=== PATIENT | female | born 1990 | race American Indian/Alaskan Native ===

== ENCOUNTER 2017-06-14 10:15 | Inpatient (IN) | payer SELFPAY ==
[2017-06-14 12:14] LABS: Hematocrit 36.3 % (30.3-42.9); Hemoglobin 12.1 gm/dl (10.1-14.3); Mean Corpuscular HGB Conc 33 % (30-34); Mean Corpuscular Hemoglobin 29 pg (28-32); Mean Corpuscular Volume 86 fl (79-97); Platelet Count 212 K/mm3 (140-440); Red Blood Count 4.24 M/mm3 (3.65-5.03); Red Cell Distribution Width 14.4 % (13.2-15.2)
[2017-06-14 12:18] LABS: Alanine Aminotransferase 12 units/L (7-56); Albumin 4.4 g/dL (3.9-5); BUN/Creatinine Ratio 18; Blood Urea Nitrogen 11 mg/dL (7-17); Hemolysis Index 3; Lipase 29 units/L (13-60)
[2017-06-14 12:52] LABS: Basophils % (Manual) 0 % (0.0-1.8); Eosinophils % (Manual) 0 % (0.0-4.3); Giant Platelets Few; Platelet Estimate Cons; RBC Morphology Normal; Total Cells Counted 100
[2017-06-14 13:27] LABS: Bilirubin,Urine NEG (Negative); Blood,Urine NEG (Negative); Color,Urine Yellow (Yellow); Hyaline Casts,Urine 1 /LPF; Mucus,Urine FEW /HPF; Protein,Urine <15 mg/dL mg/dL (Negative); RBC,Urine < 1.0 /HPF (0.0-6.0); Urobilinogen,Urine < 2.0 mg/dL (<2.0)
[2017-06-14 13:31] LABS: HCG Qualitative,Urine Negative (Negative)
[2017-06-14] MEDS ORDERED: NACL 0.9% 1000 ML 1,000 ML IV ONE ×2 (14:12→16:45)
[2017-06-14] MEDS ORDERED: ZOFRAN IV ONE ×2 (14:12→16:45)
[2017-06-14] MEDS ORDERED: MORPHINE IV ONE (14:12)
--- NOTE | 2017-06-14 14:14 | Emergency Department Report ---
Blank Doc - Documentation Documentation: Patient is 26 years old female with no significant past medical history. Patient presented to the ER with 4 day history of lower abdominal pain associated with nausea but no vomiting. Patient has significant abdominal tenderness and rebound tenderness. Patient white count is 15,000. There is GREAT possibility of acute appendicitis. CT abdomen and pelvis with IV contrast ordered patient received morphine, Zofran and FLUIDS.
[2017-06-14] MEDS ORDERED: DILAUDID IV ONE (16:45)
--- NOTE | 2017-06-14 16:48 | Emergency Department Report ---
HPI - General Chief Complaint: Abdominal Pain Time Seen by Provider: 06/14/17 14:07 - HPI HPI: The patient is a 26-year-old female presents with hours of abdominal pain. The patient reports right lower quadrant abdominal pain for the past 4 days, constant, worsening, 10/10 in severity, sharp in quality, and is exacerbated with lying flat or bending of the legs at the hip joint. The patient denies fever, chills, night sweats, diarrhea, blood in the stool, dark tarry stool, dysuria, hematuria, flank pain, genital discharge, inability to pass flatus. ED Past Medical Hx - Past Medical History Hx Hypertension: Yes (PIH) Hx Congestive Heart Failure: No Hx Diabetes: No Hx Deep Vein Thrombosis: No Hx Renal Disease: No Hx Sickle Cell Disease: (Sickle cell trait) Hx Seizures: No Hx Asthma: No Hx COPD: No Hx HIV: No - Surgical History Additional Surgical History: - Social History Smoking Status: Never Smoker Substance Use Type: None - Medications Home Medications: Home Medications Medication Instructions Recorded Confirmed Last Taken Type Vit No.129/Iron/Folic 1 each PO DAILY 02/13/15 07/10/15 Unknown History [ Tablet] Oxycodone HCl/Acetaminophen 1 each PO Q6HR PRN #45 tablet 07/12/15 Unknown Rx [Percocet 7.5/325 mg] Ferrous Sulfate [Feosol 325 MG tab] 325 mg PO BID #60 tablet 07/15/15 Unknown Rx Labetalol [Normodyne TAB] 400 mg PO BID #120 tablet 07/15/15 Unknown Rx Vit-Fe Fumar-FA [ 1 tab PO QDAY #30 tablet 07/15/15 Unknown Rx Vitamin] Butalb/Acetaminophen/Caffeine 1 cap PO Q6HR PRN #20 capsule 10/30/15 Unknown Rx [Fioricet 50-300-40 mg CAP] Ibuprofen [Motrin 600 MG tab] 600 mg PO Q6H PRN #30 tablet 10/30/15 Unknown Rx ED Review of Systems ROS: Stated complaint: ABDOMINAL PAIN Other details as noted in HPI Constitutional: denies: fever ENT: denies: throat or neck pain Respiratory: denies: cough, shortness of breath Cardiovascular: denies: chest pain Endocrine: denies unexplained weight loss or gain Gastrointestinal: reports abdominal pain, nausea Genitourinary: denies: dysuria Musculoskeletal: denies: leg swelling Skin: denies: rash Neurological: denies: headache Hematological/Lymphatic: denies: easy bleeding or easy bruising Psych: denies sadness or hopelessness Physical Exam - Physical Exam Vital Signs: Vital Signs 06/14/17 11:28 Temperature 98.7 F Pulse Rate 87 Respiratory 20 Rate Blood Pressure 113/79 O2 Sat by Pulse 100 Oximetry Physical Exam: General: well-nourished, well-developed, no acute distress Head: Normocephalic, atraumatic Eyes: normal sclera ENT: Mucous membranes are pale and dry Neck: No neck stiffness, no cervical adenopathy Respiratory: Breath sounds equal bilaterally, no wheezing, rales, or rhonchi Cardio: S1 and S2 present, no murmurs, rubs, gallops, capillary refill is delayed Abdomen: Normoactive bowel sounds, soft abdomen, no rigidity, no guarding or rebound tenderness Musc: No pitting edema Skin: No rash Neuro: no facial drooping, normal speech Psych: Normal affect ED Course Vital Signs 06/14/17 11:28 Temperature 98.7 F Pulse Rate 87 Respiratory 20 Rate Blood Pressure 113/79 O2 Sat by Pulse 100 Oximetry ED Medical Decision Making - Lab Data Result diagrams: 06/14/17 11:33 06/14/17 11:33 - Medical Decision Making The patient was seen and examined by myself. The patient is placed on a library monitor and continuous pulse ox. On initial evaluation, the patient was found to be in no distress. Evaluation orders are placed. IV access is established and the patient is given 1 L normal saline fluid bolus and Zofran for nausea, and IV dilaudid for pain. Lab results revealed elevated WBC of 15. As patient's found to have right lower quadrant tenderness and rebound tenderness, with elevated to be see, CT scan abdomen and pelvis is obtained to investigate potential appendicitis. Zosyn was ordered for treatment of potential sepsis. CT scan abdomen and pelvis was unable to visualize the appendix. The patient was reevaluated and remained with abdominal tenderness at McBurney's point. Although appendicitis was unable to be diagnosed with CT scan, as the patient was found to have leukocytosis, tachycardia, and exquisite tenderness at McBurney's point, and the patient will be admitted for continued pain control, close monitoring, and reevaluation by general surgery in the a.m. The on-call general surgeon Dr. Beaver was contacted. She agreed to consultation and to evaluate the patient in the a.m. Dr. Davey, the physician on-call for the hospitalist service was contacted. He agreed to admit the patient for further treatment and close monitoring. The ED admit order was placed. The patient was admitted in guarded condition. Critical care attestation.: If time is entered above; I have spent that time in minutes in the direct care of this critically ill patient, excluding procedure time. ED Disposition Clinical Impression: Abdominal pain, acute, right lower quadrant, Dehydration, Nausea and vomiting in adult Appendicitis, acute Qualifiers: Acute appendicitis type: unspecified acute appendicitis type Qualified Code(s) : K35.80 - Unspecified acute appendicitis Disposition: OP ADMIT IP TO THIS HOSP Is pt being admited?: Yes Does the pt Need Aspirin: Yes Condition: Fair Instructions: Abdominal Pain (ED) Referrals: PRIMARY CARE, [Primary Care Provider] - 3-5 Days DARRYL HOOKS DO [Staff Physician] - 3-5 Days Time of Disposition: 19:49
[2017-06-14] MEDS: ZOSYN/NS 3.375GM/50ML 3.375 GM/50 ML BAG IV SCH ×2 (17:38→18:23)
[2017-06-14] MEDS ORDERED: MORPHINE ONE (17:47)
[2017-06-14] MEDS ORDERED: NACL ONE (17:53)
--- NOTE | 2017-06-14 19:27 | Cat Scan Report ---
FINAL REPORT PROCEDURE: CT ABDOMEN PELVIS W CON TECHNIQUE: Computerized axial tomography of the abdomen and pelvis was performed after the IV injection of iodinated nonionic contrast. HISTORY: abdominal pain COMPARISON: No prior studies are available for comparison. FINDINGS: Visualized lower thorax: No significant abnormality. Liver: Normal size and attenuation. Spleen: Normal size and attenuation. Gallbladder and biliary system: Normal. Pancreas: Normal. Adrenals: Normal. Kidneys: 2 small subcentimeter cysts are present in the left kidney, measuring up to 6 millimeters. GI tract: Moderate volume of stool is seen in the colon, suggesting constipation. No bowel obstruction or acute inflammation is identified. Note that the appendix is not diagnostically visualized or evaluated. Lymph nodes and mesentery: Normal. Vasculature: Normal. Bladder: Normal. Reproductive organs: Bilateral small ovarian cysts are present, measuring up to 17 millimeters. Peritoneum: No free fluid. Musculoskeletal structures: There is hardware in the thoracic spine. Other: None. IMPRESSION: Moderate volume of stool is present. Correlate for constipation. Note that the appendix is not diagnostically evaluated
--- NOTE | 2017-06-14 20:13 | History and Physical Report ---
History of Present Illness Chief complaint: My stomach hurts History of present illness: 26 YO Female with HTN, Sickle Cell Trait presents to ED for evaluation. Pt states that she has experienced abdominal pain for the past 4 days with worsening symptoms over the past 1 day. Pt states that her pain is localized to the right lower quadrant, constant in nature, worse with movement, relieved somewhat with rest, 10/10 in severity, sharp in quality. The patient denies fever, chills, chest pain, palpitations, syncope, leg swelling, calf pain, prolonged travel/immobility, individual/family history of DVT/DE, unintentional weight loss, night sweats, diarrhea, blood in the stool, dark tarry stool, dysuria, hematuria, flank pain, genital discharge, inability to pass flatus, BRBPR, recent ill contacts, ingestion of food/water from new or different sources. Past History Past Medical History: other (SC trait) Past Surgical History: Social history: single. denies: smoking, alcohol abuse, prescription drug abuse Family history: no significant family history (reviewed) Medications and Allergies Allergies Allergy/AdvReac Type Severity Reaction Status Date / Time No Known Allergies Allergy Verified 07/10/15 16:59 Home Medications Medication Instructions Recorded Confirmed Last Taken Type Vit No.129/Iron/Folic 1 each PO DAILY 02/13/15 07/10/15 Unknown History [ Tablet] Oxycodone HCl/Acetaminophen 1 each PO Q6HR PRN #45 tablet 07/12/15 Unknown Rx [Percocet 7.5/325 mg] Ferrous Sulfate [Feosol 325 MG tab] 325 mg PO BID #60 tablet 07/15/15 Unknown Rx Labetalol [Normodyne TAB] 400 mg PO BID #120 tablet 07/15/15 Unknown Rx Vit-Fe Fumar-FA [ 1 tab PO QDAY #30 tablet 07/15/15 Unknown Rx Vitamin] Butalb/Acetaminophen/Caffeine 1 cap PO Q6HR PRN #20 capsule 10/30/15 Unknown Rx [Fioricet 50-300-40 mg CAP] Ibuprofen [Motrin 600 MG tab] 600 mg PO Q6H PRN #30 tablet 10/30/15 Unknown Rx Active Meds: Active Medications Piperacillin Sod/Tazobactam Sod (Zosyn/Ns 3.375gm/50ml) 3.375 gm in 50 mls @ 100 mls/hr IV Q6HR [facility] Last Admin: 06/14/17 18:23 Dose: 100 mls/hr Review of Systems Constitutional: no weight loss, no weight gain, no fever, no chills Ears, nose, mouth and throat: no ear pain, no ear discharge, no tinnitis, no decreased hearing, no nose pain, no nasal congestion, no nasal discharge Breasts: no change in shape, no swelling, no mass Cardiovascular: no chest pain, no orthopnea, no palpitations, no rapid/ irregular heart beat, no edema, no syncope, no shortness of breath Respiratory: no cough, no cough with sputum, no excessive sputum, no hemoptysis , no shortness of breath Gastrointestinal: abdominal pain, no hematemesis, no coffee ground emesis, no BRBPR, no melena, no hematochezia, no loss of appetite, no early satiety, no heartburn Genitourinary Female: no pelvic pain, no flank pain, no menorrhagia, no dysuria , no urinary frequency, no urgency Rectal: no pain, no incontinence, no bleeding Musculoskeletal: no neck stiffness, no neck pain, no shooting arm pain, no arm numbness/tingling, no low back pain Integumentary: no rash, no pruritis, no redness, no sores, no wounds, no jaundice, no boils Neurological: no transient paralysis, no paralysis, no weakness, no parathesias , no numbness, no tingling, no seizures, no syncope Psychiatric: no anxiety, no memory loss, no change in sleep habits, no sleep disturbances, no insomnia, no hypersomnia, no change in appetite, no change in libido, no suicidal ideation Endocrine: no cold intolerance, no heat intolerance, no polyphagia, no excessive thirst, no polydipsia, no nocturia, no excessive sweating Hematologic/Lymphatic: no easy bruising, no easy bleeding, no lymphadenopathy, no lymphedema Allergic/Immunologic: no urticaria, no allergic rhinitis, no wheezing, no persistent infections, no anaphylaxis, no angioedema Exam - Constitutional Vitals: Temp Pulse Resp BP Pulse Ox 99.1 F 99 H 18 124/74 100 06/14/17 18:40 06/14/17 18:40 06/14/17 18:40 06/14/17 18:40 06/14/17 18:40 General appearance: Present: mild distress - EENT Eyes: Present: PERRL ENT: hearing intact, clear oral mucosa - Neck Neck: Present: supple, normal ROM - Respiratory Respiratory effort: normal Respiratory: bilateral: CTA - Cardiovascular Heart Sounds: Present: S1 & S2. Absent: rub, click - Extremities Extremities: pulses symmetrical, No edema Peripheral Pulses: within normal limits - Abdominal General gastrointestinal: Present: soft, non-tender, tender, normal bowel sounds Localized gastrointestinal: tender: RLQ Female genitourinary: Present: normal - Integumentary Integumentary: Present: clear, warm, dry - Musculoskeletal Musculoskeletal: gait normal, strength equal bilaterally - Psychiatric Psychiatric: appropriate mood/affect, intact judgment & insight - Neurologic Neurologic: CNII-XII intact, moves all extremities Results - Labs CBC & Chem 7: 06/14/17 11:33 06/14/17 11:33 Labs: Abnormal lab results 06/14/17 06/14/17 Range/Units 11:33 11:33 WBC 15.2 H (4.5-11.0) K/mm3 Seg Neuts % (Manual) 93.0 H (40.0-70.0) % Lymphocytes % (Manual) 5.0 L (13.4-35.0) % Seg Neutrophils # Man 14.1 H (1.8-7.7) K/mm3 Lymphocytes # (Manual) 0.8 L (1.2-5.4) K/mm3 Creatinine 0.6 L (0.7-1.2) mg/dL Assessment and Plan - Patient Problems (1) SIRS (systemic inflammatory response syndrome) Current Visit: Yes Status: Acute Plan to address problem: IV antibiotics, IVF, Bowel rest, surgery consulted in ED, Intervention as per surgical team (2) Appendicitis, acute Current Visit: Yes Status: Acute Qualifiers: Acute appendicitis type: unspecified acute appendicitis type Qualified Code (s): K35.80 - Unspecified acute appendicitis Plan to address problem: IV antiviotics, IVF resuscitation, CBC, BMP, CT Abdomen pelvis, pain control, serial abdominal exam, surgery consulted. (3) induced hypertension, antepartum Current Visit: No Status: Acute Plan to address problem: monitor bp q shift, resume prehospital antihypertensive therapy (4) DVT prophylaxis Current Visit: Yes Status: Acute Plan to address problem: SCD to BLE
[2017-06-14] MEDS ORDERED: SODIUM CHLORIDE FLUSH SYRINGE 10 ML IV PRN (20:14)
[2017-06-14] MEDS ORDERED: ZOFRAN IV PRN (20:14)
[2017-06-14] MEDS ORDERED: TYLENOL PO PRN (20:14)
[2017-06-14] MEDS ORDERED: PROVENTIL IH PRN (20:14)
[2017-06-14] MEDS: MORPHINE IV PRN (21:45)
[2017-06-14] MEDS: FLAGYL 500 MG/100 ML 500 MG/100 ML BAG IV SCH (21:48)
[2017-06-14] MEDS: NACL 0.9% 1000 ML 1,000 ML IV SCH (21:52)
[2017-06-14] MEDS: SODIUM CHLORIDE FLUSH SYRINGE 10 ML IV SCH (21:53)
[2017-06-14] MEDS ORDERED: NORMODYNE PO SCH (22:00)
[2017-06-15] MEDS: MORPHINE IV PRN ×5 (04:04→23:56)
[2017-06-15 05:02] LABS: Basophils % (Auto) 0.3 % (0.0-1.8); Eosinophils % (Auto) 0.3 % (0.0-4.3); Hemoglobin 11.4 gm/dl (10.1-14.3); Lymphocytes # (Auto) 2.1 K/mm3 (1.2-5.4); Mean Corpuscular HGB Conc 34 % (30-34); Mean Corpuscular Hemoglobin 29 pg (28-32); Mean Corpuscular Volume 86 fl (79-97); Monocytes # (Auto) 0.4 K/mm3 (0.0-0.8); Monocytes % (Auto) 3.8 % (0.0-7.3); Platelet Count 178 K/mm3 (140-440); Red Blood Count 3.94 M/mm3 (3.65-5.03); Red Cell Distribution Width 14.6 % (13.2-15.2)
[2017-06-15 05:15] LABS: BUN/Creatinine Ratio 12; Blood Urea Nitrogen 7 mg/dL (7-17); Calcium 8.2 mg/dL (8.4-10.2); Hemolysis Index 3
[2017-06-15] MEDS: FLAGYL 500 MG/100 ML 500 MG/100 ML BAG IV SCH ×3 (05:36→22:39)
[2017-06-15] MEDS: NACL 0.9% 1000 ML 1,000 ML IV SCH (05:37)
[2017-06-15] MEDS: KCL 10MEQ/100ML 10 MEQ/100 ML BAG IV SCH ×2 (09:21→12:47)
[2017-06-15] MEDS: LEVAQUIN 500MG/100ML 500 MG/100 ML BAG IV SCH (09:44)
[2017-06-15] MEDS ORDERED: MILK OF MAGNESIA PO NR (09:44)
[2017-06-15] MEDS ORDERED: PRENATAL VITAMIN PO SCH (10:00)
[2017-06-15] MEDS ORDERED: [UNRECOGNIZED DRUG - REMARK] PO SCH (10:00)
[2017-06-15] MEDS: COLACE PO SCH ×2 (10:00→22:37)
[2017-06-15] MEDS: SODIUM CHLORIDE FLUSH SYRINGE 10 ML IV SCH ×2 (10:00→22:40)
[2017-06-15] MEDS: PRENATAL VITAMIN PO SCH (10:00)
--- NOTE | 2017-06-15 10:08 | Consultation ---
History of Present Illness Consult date: 06/15/17 Chief complaint: abdominal pain - History of present illness History of present illness: 26 yo F with hx of back pain presents to the ER with c/o sharp abdominal pain which has gradually increased in severity over the last 4 days. She states the pain started in the Left upper and mid abdomen and has slowly migrated to the RLQ. She is often constipated. She has never had pain like this before. She denies f/c, cp, sob, n/v, dysuria, hematochezia, melena. She is not currently menstruating. She is ambulating on her own without difficulty. Past History Past Medical History: other (SC trait, back pain) Past Surgical History: , Other (back surgery with hardware) Social history: single, smoking (5 cigarettes per day). denies: alcohol abuse, prescription drug abuse Family history: no significant family history (reviewed) Medications and Allergies Allergies Allergy/AdvReac Type Severity Reaction Status Date / Time No Known Allergies Allergy Verified 07/10/15 16:59 Home Medications Medication Instructions Recorded Confirmed Last Taken Type Vit No.129/Iron/Folic 1 each PO DAILY 02/13/15 07/10/15 Unknown History [ Tablet] Oxycodone HCl/Acetaminophen 1 each PO Q6HR PRN #45 tablet 07/12/15 Unknown Rx [Percocet 7.5/325 mg] Ferrous Sulfate [Feosol 325 MG tab] 325 mg PO BID #60 tablet 07/15/15 Unknown Rx Labetalol [Normodyne TAB] 400 mg PO BID #120 tablet 07/15/15 Unknown Rx Vit-Fe Fumar-FA [ 1 tab PO QDAY #30 tablet 07/15/15 Unknown Rx Vitamin] Butalb/Acetaminophen/Caffeine 1 cap PO Q6HR PRN #20 capsule 10/30/15 Unknown Rx [Fioricet 50-300-40 mg CAP] Ibuprofen [Motrin 600 MG tab] 600 mg PO Q6H PRN #30 tablet 10/30/15 Unknown Rx Active Meds: Active Medications Acetaminophen (Tylenol) 650 mg PO Q4H PRN PRN Reason: Pain MILD(1-3)/Fever >100.5/DUENAS Albuterol (Proventil) 2.5 mg IH Q4HRT PRN PRN Reason: Shortness Of Breath Docusate Sodium (Colace) 100 mg PO BID [facility] Sodium Chloride (Nacl 0.9% 1000 Ml) 1,000 mls @ 100 mls/hr IV DIRECT [facility] Last Admin: 06/15/17 05:37 Dose: 100 mls/hr Levofloxacin/Dextrose (Levaquin 500mg/100ml) 500 mg in 100 mls @ 100 mls/hr IV Q24HR [facility]; Protocol Last Admin: 06/15/17 09:44 Dose: 100 mls/hr Metronidazole (Flagyl 500 Mg/100 Ml) 500 mg in 100 mls @ 100 mls/hr IV Q8HR [facility] Last Admin: 06/15/17 05:36 Dose: 100 mls/hr Potassium Chloride (Kcl 10meq/100ml) 10 meq in 100 mls @ 100 mls/hr IV Q1H [facility] Stop: 06/15/17 10:59 Last Admin: 06/15/17 09:21 Dose: 100 mls/hr Magnesium Hydroxide (Milk Of Magnesia) 30 ml PO ONCE NR Stop: 06/15/17 12:00 Morphine Sulfate (Morphine) 2 mg IV Q4H PRN PRN Reason: Pain, Moderate (4-6) Last Admin: 06/15/17 09:41 Dose: 2 mg Multivitamins/Iron/Calcium ( Vitamin) 1 each PO DAILY [facility] Ondansetron HCl (Zofran) 4 mg IV Q8H PRN PRN Reason: Nausea And Vomiting Sodium Chloride (Sodium Chloride Flush Syringe 10 Ml) 10 ml IV BID [facility] Last Admin: 06/14/17 21:53 Dose: 10 ml Sodium Chloride (Sodium Chloride Flush Syringe 10 Ml) 10 ml IV PRN PRN PRN Reason: LINE FLUSH Review of Systems All systems: negative (10 point ROS performed and negative except for that listed in HPI) Exam Vital Signs Temp Pulse Resp BP Pulse Ox 98.7 F 87 20 113/79 100 06/14/17 11:28 06/14/17 11:28 06/14/17 11:28 06/14/17 11:28 06/14/17 11:28 Narrative exam: Gen: AAOx3. NAD ENT: no scleral icterus or conjunctival pallor CV: S1, S2+ Resp: CTAB, no w/r/r Abd: soft, NT, +TTP in LLQ, RLQ, LUQ. no r/r/g Ext: no c/c/e Results - Labs 06/15/17 04:18 06/15/17 04:18 Abnormal lab results 06/14/17 06/14/17 06/15/17 Range/Units 11:33 11:33 04:18 WBC 15.2 H (4.5-11.0) K/mm3 Seg Neutrophils % 76.6 H (40.0-70.0) % Seg Neuts % (Manual) 93.0 H (40.0-70.0) % Lymphocytes % (Manual) 5.0 L (13.4-35.0) % Seg Neutrophils # 8.4 H (1.8-7.7) K/mm3 Seg Neutrophils # Man 14.1 H (1.8-7.7) K/mm3 Lymphocytes # (Manual) 0.8 L (1.2-5.4) K/mm3 Potassium (3.6-5.0) mmol/L Creatinine 0.6 L (0.7-1.2) mg/dL Calcium (8.4-10.2) mg/dL 06/15/17 Range/Units 04:18 WBC (4.5-11.0) K/mm3 Seg Neutrophils % (40.0-70.0) % Seg Neuts % (Manual) (40.0-70.0) % Lymphocytes % (Manual) (13.4-35.0) % Seg Neutrophils # (1.8-7.7) K/mm3 Seg Neutrophils # Man (1.8-7.7) K/mm3 Lymphocytes # (Manual) (1.2-5.4) K/mm3 Potassium 3.4 L (3.6-5.0) mmol/L Creatinine 0.6 L (0.7-1.2) mg/dL Calcium 8.2 L (8.4-10.2) mg/dL Diabetes panel 06/14/17 06/15/17 Range/Units 11:33 04:18 Sodium 142 140 (137-145) mmol/L Potassium 3.8 3.4 L (3.6-5.0) mmol/L Chloride 103.0 102.4 (98-107) mmol/L Carbon Dioxide 28 23 (22-30) mmol/L BUN 11 7 (7-17) mg/dL Creatinine 0.6 L 0.6 L (0.7-1.2) mg/dL Glucose 99 77 (65-100) mg/dL Calcium 9.0 8.2 L (8.4-10.2) mg/dL AST 18 (5-40) units/L ALT 12 (7-56) units/L Alkaline Phosphatase 72 (35-129) units/L Total Protein 7.8 (6.3-8.2) g/dL Albumin 4.4 (3.9-5) g/dL Calcium panel 06/14/17 06/15/17 Range/Units 11:33 04:18 Calcium 9.0 8.2 L (8.4-10.2) mg/dL Albumin 4.4 (3.9-5) g/dL Pituitary panel 06/14/17 06/15/17 Range/Units 11:33 04:18 Sodium 142 140 (137-145) mmol/L Potassium 3.8 3.4 L (3.6-5.0) mmol/L Chloride 103.0 102.4 (98-107) mmol/L Carbon Dioxide 28 23 (22-30) mmol/L BUN 11 7 (7-17) mg/dL Creatinine 0.6 L 0.6 L (0.7-1.2) mg/dL Glucose 99 77 (65-100) mg/dL Calcium 9.0 8.2 L (8.4-10.2) mg/dL Adrenal panel 06/14/17 06/15/17 Range/Units 11:33 04:18 Sodium 142 140 (137-145) mmol/L Potassium 3.8 3.4 L (3.6-5.0) mmol/L Chloride 103.0 102.4 (98-107) mmol/L Carbon Dioxide 28 23 (22-30) mmol/L BUN 11 7 (7-17) mg/dL Creatinine 0.6 L 0.6 L (0.7-1.2) mg/dL Glucose 99 77 (65-100) mg/dL Calcium 9.0 8.2 L (8.4-10.2) mg/dL Total Bilirubin 0.50 (0.1-1.2) mg/dL AST 18 (5-40) units/L ALT 12 (7-56) units/L Alkaline Phosphatase 72 (35-129) units/L Total Protein 7.8 (6.3-8.2) g/dL Albumin 4.4 (3.9-5) g/dL - Imaging CT scan - abdomen: report reviewed, image reviewed CT scan - pelvis: report reviewed, image reviewed Assessment and Plan 26 yo F with abd pain, r/o appendicitis Plan: 1. CT A/P reviewed with Dr. Roland, in house radiologist - appendix is visualized and appears normal without signs of inflammation. There is no free fluid or stranding. B/l ovarian cyst. 2. obtain pelvic u/s 3. stool softeners, MOM x1 dose 4. start clear liquid diet after u/s, adv diet as tolerated 5. ok to dc home from surgery standpoint. Patient advised to return to ER if she has f/c, intractable RLQ abd pain, n/v. She understands. Thank you for this consultation, please call with questions or concerns. D/W Dr. Panda
--- NOTE | 2017-06-15 13:15 | Progress Note ---
Assessment and Plan Acute abdominal pain, - possible gastroenteritis versus ovarian cyst vs constipation - Surgery consulted and doesn't appear that patient has appendicitis -Ordered pelvic ultrasound will follow -We'll start her on clear liquid diet, will add stool softner Hypertension, - continue current meds and monitor BP - IV Hydralazine as needed SIRS, likely from acute abdominal pain - Continue antibiotic for now, follow culture DVT prophylaxis, SCD Disposition: Could be discharged home tomorrow morning if tolerating diet Brief history: 26 yo F with hx of back pain presents to the ER with c/o sharp abdominal pain which has gradually increased in severity over the last 4 days. She states the pain started in the Left upper and mid abdomen and has slowly migrated to the RLQ. Radiological test: CT scan of abdomen and pelvis: No acute intra-abdominal finding. Moderate amount stool in the colon Hospitalist Physical exam: GENERAL: well-developed AAF lying on bed appeared to be in no discomfort. HEENT: Normocephalic. Atraumatic. No conjunctival congestion or icterus. Patient has moist mucous membranes. NECK: Supple. Trachea midline. CHEST/LUNGS: Clear to auscultated bilaterally, breathing nonlabored. No wheezes crackles or rhonchi. HEART/CARDIOVASCULAR: Regular in rate and rhythm. S1 and S2 positive. ABDOMEN: Abdomen is soft, mild diffuse tender. Patient has normal bowel sounds. SKIN: There is no rash. Warm and dry. NEURO: No focal motor deficit. Follows command. MUSCULOSKELETAL: No joint effusion or tenderness. EXTRIMITY: No edema, no cyanosis or clubbing. PSYCH: Cooperative. Subjective Date of service: 06/15/17 Interval history: Patient seen and examined. Medical records and medication list reviewed. No acute event overnight noted by the RN. Patient denies any chest pain or difficulty breathing. Patient states epidural pain has much improved Discussed plan of care at bedside with patient. Objective - Constitutional Vitals: Vital Signs - 12hr 06/15/17 06/15/17 06/15/17 04:01 04:04 04:34 Temperature 98.1 F Pulse Rate 74 Respiratory 16 18 18 Rate Blood Pressure 108/68 Blood Pressure [Right] O2 Sat by Pulse 100 Oximetry 06/15/17 06/15/17 06/15/17 07:02 07:10 11:43 Temperature 98.4 F 98.9 F Pulse Rate 88 58 L 80 Respiratory 18 20 Rate Blood Pressure 108/72 Blood Pressure 120/58 [Right] O2 Sat by Pulse 98 100 99 Oximetry 06/15/17 11:44 Temperature Pulse Rate 91 H Respiratory Rate Blood Pressure Blood Pressure [Right] O2 Sat by Pulse 100 Oximetry - Labs CBC & Chem 7: 06/15/17 04:18 06/15/17 04:18 Labs: Abnormal lab results 06/14/17 06/15/17 06/15/17 Range/Units 11:33 04:18 04:18 WBC 15.2 H (4.5-11.0) K/mm3 Seg Neutrophils % 76.6 H (40.0-70.0) % Seg Neuts % (Manual) 93.0 H (40.0-70.0) % Lymphocytes % (Manual) 5.0 L (13.4-35.0) % Seg Neutrophils # 8.4 H (1.8-7.7) K/mm3 Seg Neutrophils # Man 14.1 H (1.8-7.7) K/mm3 Lymphocytes # (Manual) 0.8 L (1.2-5.4) K/mm3 Potassium 3.4 L (3.6-5.0) mmol/L Creatinine 0.6 L (0.7-1.2) mg/dL Calcium 8.2 L (8.4-10.2) mg/dL
[2017-06-15] MEDS ORDERED: K-DUR PO ONE (20:00)
[2017-06-15] MEDS: MIRALAX 3350 PO SCH (22:40)
--- NOTE | 2017-06-15 23:09 | Ultrasound Report ---
FINAL REPORT EXAM: US TRANSVAGINAL HISTORY: ovarian cysts, abd pain` TECHNIQUE: Real-time sonography was performed of the pelvis transabdominally and endovaginally. Images are submitted for interpretation. PRIORS: None. FINDINGS: The uterus appears normal measuring 7.1 x 3.5 x 4.9 the endometrial stripe appears normal measuring 10 mm. The right ovary appears normal measuring 2.7 x 1.7 x 2.5 cm. The left ovary appears normal measuring 3.0 x 2.1 x 3.0 cm. There are normal appearing follicles in the bilateral ovaries. Color Doppler evaluation of the ovaries shows flow bilaterally. There is a small of free pelvic fluid. IMPRESSION: Normal pelvic ultrasound.
--- NOTE | 2017-06-15 23:10 | Ultrasound Report ---
FINAL REPORT EXAM: US PELVIC COMPLETE HISTORY: ovarian cysts, b/l lower abd pain TECHNIQUE: Real-time sonography was performed of the pelvis transabdominally and endovaginally. Images are submitted for interpretation. PRIORS: None. FINDINGS: The uterus appears normal measuring 7.1 x 3.5 x 4.9 the endometrial stripe appears normal measuring 10 mm. The right ovary appears normal measuring 2.7 x 1.7 x 2.5 cm. The left ovary appears normal measuring 3.0 x 2.1 x 3.0 cm. There are normal appearing follicles in the bilateral ovaries. Color Doppler evaluation of the ovaries shows flow bilaterally. There is a small of free pelvic fluid. IMPRESSION: Normal pelvic ultrasound.
[2017-06-16] MEDS: FLAGYL 500 MG/100 ML 500 MG/100 ML BAG IV SCH (05:51)
[2017-06-16] MEDS: NACL 0.9% 1000 ML 1,000 ML IV SCH (05:52)
[2017-06-16 06:24] LABS: BUN/Creatinine Ratio 10; Blood Urea Nitrogen 7 mg/dL (7-17); Calcium 8.7 mg/dL (8.4-10.2); Hemolysis Index 1
[2017-06-16] MEDS ORDERED: DIPRIVAN 10 MG/ML IV ONE (07:42)
[2017-06-16 09:10] VITALS: BP 111/78
[2017-06-16] MEDS: PRENATAL VITAMIN PO SCH (09:24)
[2017-06-16] MEDS: LEVAQUIN 500MG/100ML 500 MG/100 ML BAG IV SCH (09:24)
[2017-06-16] MEDS: MIRALAX 3350 PO SCH (09:24)
[2017-06-16] MEDS: COLACE PO SCH ×2 (09:24→09:31)
[2017-06-16] MEDS: SODIUM CHLORIDE FLUSH SYRINGE 10 ML IV SCH (09:31)
--- NOTE | 2017-06-16 12:06 | Discharge Summary ---
Providers - Providers Date of Admission: 06/14/17 20:14 Attending physician: RERE KEEN MD 06/14/17 19:53 Consult to Physician [CONS] Stat Comment: Consulting Provider: DARRYL HOOKS Physician Instructions: Reason For Exam: RLQ abd pain, suspected appendicitis Primary care physician: RIVETER HAND Hospitalization Reason for admission: abdominal pain, SIRS Condition: Stable Pertinent studies: CT abdomen and pelvis: Normal findings Pelvic ultrasound: Normal Hospital course: 26 YO Female with HTN, Sickle Cell Trait presents to ED for evaluation. Pt states that she has experienced abdominal pain for the past 4 days with worsening symptoms over the past 1 day. Pt states that her pain is localized to the right lower quadrant, constant in nature, worse with movement, relieved somewhat with rest, 10/10 in severity, sharp in quality. The patient denies fever, chills, chest pain, palpitations, syncope, leg swelling, calf pain, prolonged travel/immobility, individual/family history of DVT/MD, unintentional weight loss, night sweats, diarrhea, blood in the stool, dark tarry stool, dysuria, hematuria, flank pain, genital discharge, inability to pass flatus, BRBPR, recent ill contacts, ingestion of food/water from new or different sources. Patient was admitted to the floor, CT abdomen/ pelvis and pelvic ultrasound were normal. General surgery was consulted, unlikely to be appendicitis. Abdominal pain subsided patient is tolerating regular diet discharged home in a stable condition. Patient's advised to follow up with [facility] as an outpatient. Patient had SIRS that resolved, and unlikely to be infectious origin. Disposition: - TO HOME OR SELFCARE Time spent for discharge: 31 minutes - Discharge Diagnoses (1) Abdominal pain, acute, right lower quadrant Status: Acute (2) Nausea and vomiting in adult Status: Acute Core Measure Documentation - Palliative Care Palliative Care/ Comfort Measures: Not Applicable - Core Measures Any of the following diagnoses?: none Exam - Physical Exam Narrative exam: Not in cardiopulmonary distress. The patient appeared well nourished and normally developed. Vital signs as documented. Head exam is unremarkable. No scleral icterus . Neck is without jugular venous distension, thyromegaly, or carotid bruits. Lungs are clear to auscultation. Cardiac exam reveals regular rate and Rhythm. First and second heart sounds normal. No murmurs, rubs or gallops. Abdominal exam reveals normal bowel sounds, no masses, no organomegaly and no aortic enlargement. Extremities are nonedematous and both femoral and pedal pulses are normal. [employer]PORATE [employer] OFFICER: Alert and oriented 3. No focal weakness. - Constitutional Vitals: Temp Pulse Resp BP Pulse Ox 99.1 F 74 18 111/78 99 06/16/17 08:00 06/16/17 08:00 06/16/17 08:00 06/16/17 08:00 06/16/17 10:00 Plan Activity: no restrictions Weight Bearing Status: Full Weight Bearing Diet: advance as tolerated Follow up with: PRIMARY CARE, [Primary Care Provider] - 3-5 Days DARRYL HOOKS DO [Staff Physician] - 7 Days Prescriptions: Oxycodone HCl/Acetaminophen [Percocet 7.5/325 mg] 1 each PO Q6HR PRN #10 tablet PRN Reason: Pain
== END 2017-06-16 14:00 | disposition home or self-care (01) | DRG 392 ==
LOC: ED 10:15 → 3B-SURG 20:14
PROVIDERS: ADMIT Internal Medicine; ATTEND Internal Medicine
DX: R10.31 Right lower quadrant pain (principal); R65.10 Systemic inflammatory response syndrome (SIRS) of non-infectious origin without acute organ dysfunction; D57.3 Sickle-cell trait; E86.0 Dehydration; I10 Essential (primary) hypertension; N83.202 Unspecified ovarian cyst, left side; N83.201 Unspecified ovarian cyst, right side; E87.6 Hypokalemia
CPT/HCPCS: 36415; 74177; 76830; 76856; 80048; 80053; 81001; 81025; 83690; 85007; 85025; 96361; 96365; 96366; 96375; 96376; 99406; J1170; J1956; J2270; J2405; J2543; J2704; J3480; J7030; Q9967

== ENCOUNTER 2020-03-29 09:42 | Emergency (ER) | payer SELFPAY ==
[2020-03-29 09:53] VITALS: BP 128/101
--- NOTE | 2020-03-29 10:20 | Emergency Department Report ---
Minor Respiratory - HPI Chief Complaint: Upper Respiratory Infection Stated Complaint: FLU LIKE SYMPTOMS/SOB Time Seen by Provider: 03/29/20 10:11 Duration: 1 week Minor Respiratory: Yes Rhinorrhea, Yes Sore Throat, Yes Able to Tolerate Fluids, Yes Cough, Yes Shortness of Breath, No Ear Pain, No Sick Contacts, No Hemopt ysis, No Chest Pain, No Fever Other History: 29-year-old -[place] female presents to the emergency room complaining of a 1 week history of body aches stomach pain shortness of breath sore throat. Patient reports she recently had a negative Covid test on Wednesday. Patient states has been taking Mucinex Sudafed, TheraFlu and Benadryl as well as santy tea. Patient reports her last menstrual period was 03/15/2020. She states it started off as a dry cough now her shortness of breath and chest discomfort is worse when she takes a deep breath and sore throat is w orse with swallowing. ED Review of Systems ROS: Stated complaint: FLU LIKE SYMPTOMS/SOB Other details as noted in HPI ED Past Medical Hx - Past Medical History Previous Medical History?: Yes Hx Hypertension: Yes (PIH) Hx Congestive Heart Failure: No Hx Diabetes: No Hx Deep Vein Thrombosis: No Hx Renal Disease: No Hx Sickle Cell Disease: (Sickle cell trait) Hx Seizures: No Hx Asthma: No Hx COPD: No Hx HIV: No - Surgical History Past Surgical History?: Yes Additional Surgical History: - Social History Smoking Status: Current Every Day Smoker - Medications Home Medications: Home Medications Medication Instructions Recorded Confirmed Last Taken Type Vit No.129/Iron/Folic 1 each PO DAILY 02/13/15 07/10/15 Unknown History [ One Daily Tablet] Ferrous Sulfate [Feosol 325 MG tab] 325 mg PO BID #60 tablet 07/15/15 Unknown Rx Vit-Fe Fumar-FA [ 1 tab PO QDAY #30 tablet 07/15/15 Unknown Rx Vitamin] labetaloL [Labetalol 200mg TAB] 400 mg PO BID #120 tablet 07/15/15 Unknown Rx Butalb/Acetaminophen/Caffeine 1 cap PO Q6HR PRN #20 capsule 10/30/15 Unknown Rx [Fioricet 50-300-40 mg CAP] Ibuprofen [Motrin 600 MG tab] 600 mg PO Q6H PRN #30 tablet 10/30/15 Unknown Rx Oxycodone HCl/Acetaminophen 1 each PO Q6HR PRN #10 tablet 06/16/17 Unknown Rx [Percocet 7.5/325 mg] Minor Respiratory Exam - Exam General: Vital signs noted. No distress. Alert and acting appropriately. HEENT: Yes Moist Mucous Membranes, No Pharyngeal Erythema, No Pharyngeal Exudates, No Rhinorrhea, No Conjuctival Injection, No Frontal Tenderness, No Maxillary Tenderness Ear: Neither TM Bulge, Neither TM Erythema, Neither EAC Pain, Neither EAC Discharge Neck: Yes Supple, No Adenopathy Lungs: Yes Good Air Exchange, No Wheezes, No Ronchi, No Stridor, No Cough, No Labored Respirations, No Retractions, No Use of Accessory Muscles, No Other Abnormal Lung Sounds Heart: Yes Regular, No Murmur Abdomen: Yes Normal Bowel Sounds, No Tenderness, No Peritoneal Signs Skin: No Rash, No Edema Neurologic: Alert and oriented, no deficits. Musculoskeletal: Unremarkable. ED Course Vital Signs 03/29/20 09:50 Temperature 98.7 F Pulse Rate 92 H Respiratory 16 Rate Blood Pressure 128/101 O2 Sat by Pulse 100 Oximetry ED Medical Decision Making - Lab Data Result diagrams: 03/29/20 10:38 03/29/20 10:38 - Radiology Data Radiology results: report reviewed [facility] [address] [place] [address] XRay Report Signed Patient: RICHARD LO MR#: [id number] : 1990 Acct:[id number] Age/Sex: 29 / F ADM Date: 03/29/20 Loc: ED Attending Dr: Ordering Physician: FARHEEN PHAM Date of Service: 03/29/20 Procedure(s): XR chest routine 2V Accession Number(s): [id number] cc: FARHEEN PHAM Fluoro Time In Minutes: XR chest routine 2V INDICATION / CLINICAL INFORMATION: sob COMPARISON: None available. FINDINGS: SUPPORT DEVICES: None. HEART / MEDIASTINUM: No significant abnormality. LUNGS / PLEURA: Lungs are clear. Costophrenic sulci are sharp. No pneumothorax. ADDITIONAL FINDINGS: No significant additional findings. Is operative changes from posterior spinal fusion. IMPRESSION: 1. No acute findings. Signer Name: Olivier Reza MD Signed: 03/29/2020 1:00 PM Workstation Name: [id number] Transcribed By: CS Dictated By: Olivier Reza MD Electronically Authenticated By: Olivier Reza MD Signed Date/Time: 03/29/20 1300 DD/ 1300 TD/TT: - Medical Decision Making 29-year-old -[place] female presents to the emergency room complaining of a 1 week history of body aches stomach pain shortness of breath sore throat. Patient reports she recently had a negative Covid test on Wednesday. Patient states has been taking Mucinex Sudafed, TheraFlu and Benadryl as well as santy tea. Patient reports her last menstrual period was 03/15/2020. She states it started off as a dry cough now her shortness of breath and chest discomfort is worse when she takes a deep breath and sore throat is worse with swallowing. CBC CMP urinalysis chest x-ray rapid strep rapid flu. Chest x-ray is negative for any pneumonia or abnormalities, rapid strep and rapid flu are negative. Urinalysis is negative. Critical care attestation.: If time is entered above; I have spent that time in minutes in the direct care of this critically ill patient, excluding procedure time. ED Disposition Clinical Impression: Viral syndrome Disposition: DC-01 TO HOME OR SELFCARE Is pt being admited?: No Does the pt Need Aspirin: No Condition: Stable Additional Instructions: Chest x-ray is negative for any pneumonia or abnormalities, rapid strep and rapid flu are negative. Urinalysis is negative. Your symptoms appear most consistent with a nonspecific viral syndrome. However, given this current pandemic, COVID-19 is in the differential of possibilities. Despite your previous negative COVID-19 test, I do recommend repeat outpatient Covid 19 testing. In the meantime, isolate/quarantine yourself and stay away from anyone who is elderly, immunocompromised or chronically ill. You can use ibuprofen every 6-8 hours and Tylenol every 4-8 hours, using the dosing on the back of the bottle, as needed for any fever or body aches. Return to the emergency department with any worsening of your symptoms, development of chest pain or shortness of breath, or with any acute distress. Referrals: PRIMARY CAREMD [Primary Care Provider] - 3-5 Days [facility] [Provider Group] - 3-5 Days Forms: Work/School Release Form(ED)
[2020-03-29 10:42] LABS: Bacteria,Urine 1+ /HPF (Negative); Bilirubin,Urine NEG (Negative); Blood,Urine NEG (Negative); Color,Urine Yellow (Yellow); Mucus,Urine FEW /HPF; Protein,Urine <15 mg/dL mg/dL (Negative); Urobilinogen,Urine < 2.0 mg/dL (<2.0)
[2020-03-29 11:18] LABS: Basophils % (Auto) 0.8 % (0.0-1.8); Eosinophils % (Auto) 0.4 % (0.0-4.3); Hemoglobin 13.1 gm/dl (10.1-14.3); Lymphocytes # (Auto) 1.3 K/mm3 (1.2-5.4); Lymphocytes % (Auto) 43.8 % (13.4-35.0); Mean Corpuscular HGB Conc 34 % (30-34); Mean Corpuscular Volume 88 fl (79-97); Monocytes # (Auto) 0.4 K/mm3 (0.0-0.8); Monocytes % (Auto) 13.1 % (0.0-7.3); Platelet Count 197 K/mm3 (140-440); Red Blood Count 4.33 M/mm3 (3.65-5.03); Red Cell Distribution Width 13.2 % (13.2-15.2)
[2020-03-29 11:33] LABS: Alanine Aminotransferase 17 units/L (7-56); Albumin 4.4 g/dL (3.9-5); BUN/Creatinine Ratio 9; Blood Urea Nitrogen 7 mg/dL (7-17); Calcium 8.9 mg/dL (8.4-10.2); Hemolysis Index 6
[2020-03-29 12:03] LABS: HCG Qualitative,Urine Negative (Negative)
--- NOTE | 2020-03-29 13:05 | XRay Report ---
XR chest routine 2V INDICATION / CLINICAL INFORMATION: sob COMPARISON: None available. FINDINGS: SUPPORT DEVICES: None. HEART / MEDIASTINUM: No significant abnormality. LUNGS / PLEURA: Lungs are clear. Costophrenic sulci are sharp. No pneumothorax. ADDITIONAL FINDINGS: No significant additional findings. Is operative changes from posterior spinal f usion. IMPRESSION: 1. No acute findings. Signer Name: Olivier Reza MD Signed: 03/29/2020 1:00 PM Workstation Name: [id number]
== END 2020-03-29 13:10 | disposition home or self-care (01) ==
LOC: ED 09:42
DX: B34.9 Viral infection, unspecified (principal); I10 Essential (primary) hypertension; F17.200 Nicotine dependence, unspecified, uncomplicated; Z79.899 Other long term (current) drug therapy
CPT/HCPCS: 36415; 71046; 80053; 81001; 81025; 83690; 85025; 87116; 87400; 87430

== ENCOUNTER 2020-09-09 13:13 | Emergency (ER) | payer SELFPAY ==
[2020-09-09 16:02] VITALS: BP 159/100
[2020-09-09] MEDS ORDERED: CHLORHEXIDINE MOUTHWASH 473ML MM ONE (16:45)
[2020-09-09] MEDS ORDERED: HYDROGEN PEROXIDE 118 ML SOLUTION TP ONE (16:47)
--- NOTE | 2020-09-09 18:07 | Emergency Department Report ---
ED ENT HPI - General Chief complaint: Earache Stated complaint: NO HEARING IN RIGHT EAR Time Seen by Provider: 09/09/20 16:22 Source: patient Mode of arrival: Ambulatory Limitations: No Limitations - History of Present Illness Initial comments: This is a 30-year-old female brought by mother nontoxic, well nourished in appearance, no acute signs of distress presents to the ED with c/o of bilateral decreased hearing and pressure x several days. Patient that has history of cerumen impaction. Patient denies any ear drainage. Patient denies any trauma to the area. Patient denies any mastoid tenderness or tragus tenderness. Patient denies hearing decrease or hearing changes. Patient denies any fever, chills, nausea, vomiting, chest pain, short of breath, headache or stiff neck. Patient denies any drug allergies. MD complaint: ear pain -: days(s) Location: R ear, L ear Severity: mild Improves with: none Worsens with: none Associated Symptoms: denies: fever, cough, gum swelling, toothache, pain with swallowing, sore throat, tinnitus, hearing loss, discharge from ear, rhinorrhea - Related Data Home Medications Medication Instructions Recorded Confirmed Last Taken Vit No.129/Iron/Folic 1 each PO DAILY 02/13/15 07/10/15 Unknown [ One Daily Tablet] Previous Rx's Medication Instructions Recorded Last Taken Type Ferrous Sulfate [Feosol 325 MG tab] 325 mg PO BID #60 tablet 07/15/15 Unknown Rx Vit-Fe Fumar-FA [ 1 tab PO QDAY #30 tablet 07/15/15 Unknown Rx Vitamin] labetaloL [Labetalol 200mg TAB] 400 mg PO BID #120 tablet 07/15/15 Unknown Rx Butalb/Acetaminophen/Caffeine 1 cap PO Q6HR PRN #20 capsule 10/30/15 Unknown Rx [Fioricet 50-300-40 mg CAP] Ibuprofen [Motrin 600 MG tab] 600 mg PO Q6H PRN #30 tablet 10/30/15 Unknown Rx Oxycodone HCl/Acetaminophen 1 each PO Q6HR PRN #10 tablet 06/16/17 Unknown Rx [Percocet 7.5/325 mg] Polymyxin B Sulf/Trimethoprim 3 drops TID 7 Days #1 drops 09/09/20 Unknown Rx [Polytrim Eye Drops] Allergies Allergy/AdvReac Type Severity Reaction Status Date / Time No Known Allergies Allergy Verified 07/10/15 16:59 ED Dental HPI - General Chief complaint: Earache Stated complaint: NO HEARING IN RIGHT EAR Time Seen by Provider: 09/09/20 16:22 Source: patient Mode of arrival: Ambulatory Limitations: No Limitations - Related Data Home Medications Medication Instructions Recorded Confirmed Last Taken Vit No.129/Iron/Folic 1 each PO DAILY 02/13/15 07/10/15 Unknown [ One Daily Tablet] Previous Rx's Medication Instructions Recorded Last Taken Type Ferrous Sulfate [Feosol 325 MG tab] 325 mg PO BID #60 tablet 07/15/15 Unknown Rx Vit-Fe Fumar-FA [ 1 tab PO QDAY #30 tablet 07/15/15 Unknown Rx Vitamin] labetaloL [Labetalol 200mg TAB] 400 mg PO BID #120 tablet 07/15/15 Unknown Rx Butalb/Acetaminophen/Caffeine 1 cap PO Q6HR PRN #20 capsule 10/30/15 Unknown Rx [Fioricet 50-300-40 mg CAP] Ibuprofen [Motrin 600 MG tab] 600 mg PO Q6H PRN #30 tablet 10/30/15 Unknown Rx Oxycodone HCl/Acetaminophen 1 each PO Q6HR PRN #10 tablet 06/16/17 Unknown Rx [Percocet 7.5/325 mg] Polymyxin B Sulf/Trimethoprim 3 drops TID 7 Days #1 drops 09/09/20 Unknown Rx [Polytrim Eye Drops] Allergies Allergy/AdvReac Type Severity Reaction Status Date / Time No Known Allergies Allergy Verified 07/10/15 16:59 ED Review of Systems ROS: Stated complaint: NO HEARING IN RIGHT EAR Other details as noted in HPI Comment: All other systems reviewed and negative Constitutional: denies: chills, fever Eyes: denies: eye pain, eye discharge, vision change ENT: denies: ear pain, throat pain Respiratory: denies: cough, shortness of breath, wheezing Cardiovascular: denies: chest pain, palpitations Endocrine: no symptoms reported Gastrointestinal: denies: abdominal pain, nausea, diarrhea Genitourinary: denies: urgency, dysuria, discharge Musculoskeletal: denies: back pain, joint swelling, arthralgia Skin: denies: rash, lesions Neurological: denies: headache, weakness, paresthesias Psychiatric: denies: anxiety, depression Hematological/Lymphatic: denies: easy bleeding, easy bruising ED Past Medical Hx - Past Medical History Previous Medical History?: Yes Hx Hypertension: Yes (PIH) Hx Congestive Heart Failure: No Hx Diabetes: No Hx Deep Vein Thrombosis: No Hx Renal Disease: No Hx Sickle Cell Disease: (Sickle cell trait) Hx Seizures: No Hx Asthma: No Hx COPD: No Hx HIV: No - Surgical History Past Surgical History?: Yes Additional Surgical History: - Social History Smoking Status: Current Every Day Smoker - Medications Home Medications: Home Medications Medication Instructions Recorded Confirmed Last Taken Type Vit No.129/Iron/Folic 1 each PO DAILY 02/13/15 07/10/15 Unknown History [ One Daily Tablet] Ferrous Sulfate [Feosol 325 MG tab] 325 mg PO BID #60 tablet 07/15/15 Unknown Rx Vit-Fe Fumar-FA [ 1 tab PO QDAY #30 tablet 07/15/15 Unknown Rx Vitamin] labetaloL [Labetalol 200mg TAB] 400 mg PO BID #120 tablet 07/15/15 Unknown Rx Butalb/Acetaminophen/Caffeine 1 cap PO Q6HR PRN #20 capsule 10/30/15 Unknown Rx [Fioricet 50-300-40 mg CAP] Ibuprofen [Motrin 600 MG tab] 600 mg PO Q6H PRN #30 tablet 10/30/15 Unknown Rx Oxycodone HCl/Acetaminophen 1 each PO Q6HR PRN #10 tablet 06/16/17 Unknown Rx [Percocet 7.5/325 mg] Polymyxin B Sulf/Trimethoprim 3 drops TID 7 Days #1 drops 09/09/20 Unknown Rx [Polytrim Eye Drops] ED Physical Exam - General Limitations: No Limitations General appearance: alert, in no apparent distress - Head Head exam: Present: atraumatic, normocephalic - Eye Eye exam: Present: normal appearance - Expanded ENT Exam Expanded TM/Canal exam: Erythema: Right TM, Left TM, Cerumen Impaction: Right TM, Left TM - Neck Neck exam: Present: normal inspection, full ROM. Absent: lymphadenopathy - Respiratory Respiratory exam: Absent: respiratory distress - Cardiovascular Cardiovascular Exam: Present: regular rate - Extremities Exam Extremities exam: Present: full ROM - Back Exam Back exam: Present: full ROM - Neurological Exam Neurological exam: Present: alert, oriented X3, normal gait - Psychiatric Psychiatric exam: Present: normal affect, normal mood - Skin Skin exam: Present: warm, dry, intact, normal color. Absent: rash ED Course Vital Signs 09/09/20 16:00 Temperature 98.8 F Pulse Rate 68 Respiratory 18 Rate Blood Pressure 159/100 [Right] O2 Sat by Pulse 98 Oximetry - Reevaluation(s) Reevaluation #1: 09/09/20 18:08 Patient is speaking in full sentences with no signs of distress noted. - Ear Wax Removal Both Ears Cerumenolytic Used: Other (Hydrogen peroxide mixed with saline [id number]) Ear Canal Irrigated by: other (Myself) Ear Canal Irrigated With: warm saline using syringe/angiocath Ear Canal(s) Curettaged: plastic scoops, suction tip catheter Results: Re-examined: cerumen removed completel TM Visible: TM(s) erythematous Ear Canal: atraumatic Patient Tolerated Procedure: well, no complications Complications: no problems ED Medical Decision Making - Medical Decision Making 30-year-old female that presents with cerumen impaction bilateral. Patient is stable and was examined by me. Patient tolerated procedure well. Patient be treated with Polytrim empirically post removal. Patient was instructed to follow-up with a primary care doctor in 3-5 days or if symptoms worsen and continue return to emergency room as soon as possible. At time of discharge, the patient does not seem toxic or ill in appearance. No acute signs of distress noted. Patient agrees to discharge treatment plan of care. No further questions noted by the patient. Critical care attestation.: If time is entered above; I have spent that time in minutes in the direct care of this critically ill patient, excluding procedure time. ED Disposition Clinical Impression: Cerumen impaction Qualifiers: Laterality: bilateral Qualified Code(s): H61.23 - Impacted cerumen, bilateral Disposition: - TO HOME OR SELFCARE Is pt being admited?: No Does the pt Need Aspirin: No Condition: Stable Instructions: Earwax Buildup, Adult, Ear Irrigation Additional Instructions: Follow-up with a primary care and ENT doctor in 3-5 days or if symptoms worsen and continue return to emergency room as soon as possible. Prescriptions: Polymyxin B Sulf/Trimethoprim [Polytrim Eye Drops] 3 drops TID 7 Days #1 drops Referrals: PRIMARY CAREMD [Referring] - 3-5 Days SUGAR RUELAS MD [Staff Physician] - 3-5 Days COURTNEY TEIXEIRA MD [Referring] - 3-5 Days Time of Disposition: 18:17
== END 2020-09-09 18:35 | disposition home or self-care (01) ==
LOC: ED 13:13
DX: H61.23 Impacted cerumen, bilateral (principal); I10 Essential (primary) hypertension; F17.200 Nicotine dependence, unspecified, uncomplicated; Z98.890 Other specified postprocedural states; Z79.899 Other long term (current) drug therapy
CPT/HCPCS: 99282; 99283

== ENCOUNTER 2020-09-12 00:26 | Emergency (ER) | payer OTHER ==
--- NOTE | 2020-09-12 04:24 | Emergency Department Report ---
ED General Adult HPI - General Time Seen by Provider: 09/12/20 03:11 - History of Present Illness Initial comments: 30-year-old female that emerge department complaining of bilateral ear pressure right greater than left and the sensation that earwax ductopenia began 6 to have irrigated first in the emergency department. She reports no bleeding, no no no dizziness, no no pain reports no nasal congestion, no sore throat, no fever, chills, sweats. No chest pain or palpitation,, no nausea, no vomiting. She reports no dull headache. She reports no no swimming or or or worse emergent since her last visit emergency department she was prescribed medication's and has completed that medication with some improvement but no symptoms of weakness to reemerge. - Related Data Home Medications Medication Instructions Recorded Confirmed Last Taken Vit No.129/Iron/Folic 1 each PO DAILY 02/13/15 07/10/15 Unknown [ One Daily Tablet] Previous Rx's Medication Instructions Recorded Last Taken Type Ferrous Sulfate [Feosol 325 MG tab] 325 mg PO BID #60 tablet 07/15/15 Unknown Rx Vit-Fe Fumar-FA [ 1 tab PO QDAY #30 tablet 07/15/15 Unknown Rx Vitamin] labetaloL [Labetalol 200mg TAB] 400 mg PO BID #120 tablet 07/15/15 Unknown Rx Butalb/Acetaminophen/Caffeine 1 cap PO Q6HR PRN #20 capsule 10/30/15 Unknown Rx [Fioricet 50-300-40 mg CAP] Ibuprofen [Motrin 600 MG tab] 600 mg PO Q6H PRN #30 tablet 10/30/15 Unknown Rx Oxycodone HCl/Acetaminophen 1 each PO Q6HR PRN #10 tablet 06/16/17 Unknown Rx [Percocet 7.5/325 mg] Polymyxin B Sulf/Trimethoprim 3 drops TID 7 Days #1 drops 09/09/20 Unknown Rx [Polytrim Eye Drops] Amoxicillin/Potassium Clav 1 each PO BID #20 tablet 09/12/20 Unknown Rx [Augmentin 875-125 Tablet] Fexofenadine/Pseudoephedrine 1 each PO DAILY #20 tab.er.24h 09/12/20 Unknown Rx [Harleen-D 24 Hour Tablet] Allergies Allergy/AdvReac Type Severity Reaction Status Date / Time No Known Allergies Allergy Verified 07/10/15 16:59 ED Review of Systems ROS: Stated complaint: Other details as noted in HPI Comment: All other systems reviewed and negative ED Past Medical Hx - Past Medical History Hx Hypertension: Yes (PIH) Hx Congestive Heart Failure: No Hx Diabetes: No Hx Deep Vein Thrombosis: No Hx Renal Disease: No Hx Sickle Cell Disease: (Sickle cell trait) Hx Seizures: No Hx Asthma: No Hx COPD: No Hx HIV: No - Surgical History Additional Surgical History: - Social History Smoking Status: Current Every Day Smoker - Medications Home Medications: Home Medications Medication Instructions Recorded Confirmed Last Taken Type Vit No.129/Iron/Folic 1 each PO DAILY 02/13/15 07/10/15 Unknown History [ One Daily Tablet] Ferrous Sulfate [Feosol 325 MG tab] 325 mg PO BID #60 tablet 07/15/15 Unknown Rx Vit-Fe Fumar-FA [ 1 tab PO QDAY #30 tablet 07/15/15 Unknown Rx Vitamin] labetaloL [Labetalol 200mg TAB] 400 mg PO BID #120 tablet 07/15/15 Unknown Rx Butalb/Acetaminophen/Caffeine 1 cap PO Q6HR PRN #20 capsule 10/30/15 Unknown Rx [Fioricet 50-300-40 mg CAP] Ibuprofen [Motrin 600 MG tab] 600 mg PO Q6H PRN #30 tablet 10/30/15 Unknown Rx Oxycodone HCl/Acetaminophen 1 each PO Q6HR PRN #10 tablet 06/16/17 Unknown Rx [Percocet 7.5/325 mg] Polymyxin B Sulf/Trimethoprim 3 drops TID 7 Days #1 drops 09/09/20 Unknown Rx [Polytrim Eye Drops] Amoxicillin/Potassium Clav 1 each PO BID #20 tablet 09/12/20 Unknown Rx [Augmentin 875-125 Tablet] Fexofenadine/Pseudoephedrine 1 each PO DAILY #20 tab.er.24h 09/12/20 Unknown Rx [Harleen-D 24 Hour Tablet] ED Physical Exam - General General appearance: alert, in no apparent distress - Head Head exam: Present: atraumatic, normocephalic - Eye Eye exam: Present: normal appearance - ENT ENT exam: Present: mucous membranes moist, other (On physical examination there is bilateral ear effusions, there is some mild cerumen buildup to the right ear canal but no impaction is noted. No mastoid tenderness noted. No exudate, no bleeding, no drainage.) - Neck Neck exam: Present: normal inspection - Respiratory Respiratory exam: Present: normal lung sounds bilaterally. Absent: respiratory distress - Cardiovascular Cardiovascular Exam: Present: regular rate, normal rhythm. Absent: systolic murmur, diastolic murmur, rubs, gallop - GI/Abdominal GI/Abdominal exam: Present: soft, normal bowel sounds - Extremities Exam Extremities exam: Present: normal inspection - Back Exam Back exam: Present: normal inspection - Neurological Exam Neurological exam: Present: alert, oriented X3 - Psychiatric Psychiatric exam: Present: normal affect, normal mood - Skin Skin exam: Present: warm, dry, intact, normal color. Absent: rash ED Course Vital Signs 09/12/20 04:40 Pulse Rate 77 Respiratory 16 Rate O2 Sat by Pulse 100 Oximetry Critical care attestation.: If time is entered above; I have spent that time in minutes in the direct care of this critically ill patient, excluding procedure time. ED Disposition Clinical Impression: Otalgia, Middle ear effusion, H/O impacted cerumen Disposition: DC-01 TO HOME OR SELFCARE Is pt being admited?: No Does the pt Need Aspirin: No Condition: Stable Instructions: Ear Drops, Adult, Earwax Buildup, Adult, Ear Irrigation, Otitis Media, Adult Additional Instructions: Utilize Debrox for your earwax removal following instructions on the box Prescriptions: Fexofenadine/Pseudoephedrine [Harleen-D 24 Hour Tablet] 1 each PO DAILY #20 tab.er.24h Amoxicillin/Potassium Clav [Augmentin 875-125 Tablet] 1 each PO BID #20 tablet Referrals: PRIMARY CARE, [Primary Care Provider] - 3-5 Days Forms: Work/School Release Form(ED)
[2020-09-13] MEDS ORDERED: diphenhydrAMINE 50 MG/ML VIAL ONE (13:23)
[2020-09-13] MEDS ORDERED: SUCCINYLCHOLINE CHLORIDE 200 MG/10 ML INJ MDV ONE (14:15)
[2020-09-13] MEDS ORDERED: ETOMIDATE 20 MG/10 ML INJ IV ONE (14:16)
== END 2020-09-12 04:41 | disposition home or self-care (01) ==
LOC: ED 00:26
DX: H92.03 Otalgia, bilateral (principal); I10 Essential (primary) hypertension; F17.200 Nicotine dependence, unspecified, uncomplicated; Z98.890 Other specified postprocedural states; Z79.1 Long term (current) use of non-steroidal anti-inflammatories (NSAID); Z79.899 Other long term (current) drug therapy
CPT/HCPCS: 99282; J0330; J1200